=== PATIENT | female | born 1945 | race Caucasian/White ===

== ENCOUNTER → 2016-06-20 | Outpatient (CLI) | payer MEDICARE, BC ==
[2015-02-21 11:55] VITALS: BP 138/75
[~2016-06-20] MED LIST: AMLO1TAB93 PO; AMLO1TAB95 PO; ASPI81TA2 PO; CYAN250T PO; ESTR0.62 PO; GLUC1CAP48 PO; PANT40TA3 PO; PANTOPRAZOLE; POLY17PO5 PO
--- NOTE | 2016-06-20 14:33 | RAD ---
Chest, 2 views, 06/20/2016: History: Cough, bronchitis Comparison is made to a study from 02/21/2015. The heart size and pulmonary vascularity are normal. There are mild linear basilar opacities compatible with scarring. No pulmonary consolidation is seen. There is no evidence of pleural fluid. Moderate spurring is present in the spine. IMPRESSION: 1. Mild bibasilar linear scarring. 2. No acute cardiopulmonary abnormality is detected.
== END | disposition home or self-care (01) ==
LOC: DXRADRC 09:40
PROVIDERS: ATTEND Family Medicine
DX: J40 Bronchitis, not specified as acute or chronic (principal); L90.5 Scar conditions and fibrosis of skin; R91.8 Other nonspecific abnormal finding of lung field
CPT/HCPCS: 71020

== ENCOUNTER 2016-10-22 02:42 | Emergency (ER) | payer MEDICARE, BC ==
[~2016-10-22] VITALS: Ht 167.6 cm; Wt 94.3 kg
[~2016-10-22 02:42] MED LIST changes: +ASPI-630 PO; -ASPI81TA2 PO
[2016-10-22 02:43] VITALS: BP 158/84
--- NOTE | 2016-10-22 02:53 | ED.ADGEN ---
Past History Past Medical History: GERD, Hypertension, Other Past Surgical History: Cholecystectomy, Hysterectomy, Oophorectomy Smoking: Non-smoker Alcohol Use: None Drug Use: None Adult General Chief Complaint Chief Complaint ".. I was getting some out of the freezer.. and hurt my back.. well it gotten worse today ... when I was doing cleaning.. I seen the chiropractor.. and got an adjustment.. but I still hurting really bad... can't sit.. or lay down.. It hurts all the way down... this Lt leg..." HPI HPI Patient is a 71 year old female who presents with above hx and complaints. Patient has marked pain in lumbar sacral and paraspinal muscles on left. Pain follows a sciatic course through the left gluteal into left foot. Pain has exacerbation with straight leg with on left. Distal sensation and vibratory intact. No history of fever or chills. No history of cancer. No history of immune of immune suppression. Patient normally follows with Dr. Gr as primary. Pt. does have hx of HTN. Patient reports no problems with defecation but unable to urinate well because of pain on positioning on stool lid. Has tried Advil and Tylenol at home for pain. Review of Systems Review of Systems Constitutional: Denies fever or chills [] Eyes: Denies change in visual acuity, redness, or eye pain [] HENT: Denies nasal congestion or sore throat [] Respiratory: Denies cough or shortness of breath [] Cardiovascular: No additional information not addressed in HPI [] GI: Denies abdominal pain, nausea, vomiting, bloody stools or diarrhea [] : Denies dysuria or hematuria [] Musculoskeletal: Complaints of marked back pain or joint pain [] Integument: Denies rash or skin lesions [] Neurologic: Denies headache, focal weakness or sensory changes [] Endocrine: Denies polyuria or polydipsia [] Family History Family History Noncontributory Current Medications Current Medications Current Medications Medications (Trade) Dose Ordered Sig/Bettye Start Time Stop Time Status Last Admin Dose Admin Ketorolac Tromethamine (Toradol) 30 mg 1X ONCE 10/22/16 03:30 10/22/16 03:31 DC 10/22/16 03:30 30 MG Morphine Sulfate (Morphine 10mg Syringe) 10 mg 1X ONCE 10/22/16 03:30 10/22/16 03:31 DC 10/22/16 03:30 10 MG Orphenadrine Citrate (Norflex) 60 mg 1X ONCE 10/22/16 03:30 10/22/16 03:31 DC 10/22/16 03:30 60 MG See nursing for home meds Allergies Allergies Allergies Coded Allergies Type Severity Reaction Last Updated Verified Penicillins Allergy Unknown Unknown 04/15/14 Yes Soap Allergy Unknown 04/15/14 Yes Sulfa (Sulfonamide Antibiotics) Allergy Unknown Unknown 04/15/14 Yes codeine Allergy Unknown Unknown 04/15/14 Yes povidone-iodine Allergy Unknown 01/27/13 Yes Physical Exam Physical Exam Constitutional: Well developed, well nourished, no acute distress, non-toxic appearance. [] HENT: Normocephalic, atraumatic, bilateral external ears normal, oropharynx moist, no oral exudates, nose normal. []Glasses Eyes: PERRLA, EOMI, conjunctiva normal, no discharge. [] Neck: Normal range of motion, no tenderness, supple, no stridor. [] Cardiovascular: Tachycardia rate regular rhythm, no murmur [] Lungs & Thorax: Bilateral breath sounds clear to auscultation [] Abdomen: Bowel sounds normal, soft, no tenderness, no masses, no pulsatile masses. [Obese. Old surgery scar Skin: Warm, dry, no erythema, no rash. [Poor turgor Back: No tenderness, no CVA tenderness. [] Extremities: No tenderness, no cyanosis, no clubbing, ROM intact, no edema. Pt. has guarded gait Neurologic: Alert and oriented X 3, normal motor function, normal sensory function, no focal deficits noted. DTRs are +2 at brachial and +1 knees. Right knee has some arthritic changes. Distal vibratory 128 intact Psychologic: Affect anxious, judgement normal, mood normal. [] Current Patient Data Vital Signs Vital Signs Date Time Temp Pulse Resp B/P (MAP) Pulse Ox O2 Delivery O2 Flow Rate FiO2 10/22/16 02:43 97.7 81 20 95 Room Air EKG EKG [] Radiology/Procedures Radiology/Procedures Interpretation of CT shows[] Course & Med Decision Making Course & Med Decision Making Pertinent Labs and Imaging studies reviewed. (See chart for details) Pt.to follow up with primary care. Ice packs as needed. Flexeril 10 mg up 3 x day for muscle spasms. Vicopofen up 4 x day for marked pain. Must follow up[. [] Final Impression Final Impression 1. Sciatica[] 2. DJD Problems: Dragon Disclaimer Dragon Disclaimer This electronic medical record was generated, in whole or in part, using a voice recognition dictation system. CHARLENE HAMMONDS MD Oct 22, 2016 02:53
[2016-10-22] MEDS ORDERED: ORPHENADRINE CITRATE 60 MG/2 ML VIAL. IM ONE (03:30)
[2016-10-22] MEDS ORDERED: MORPHINE SULFATE 10 MG/ML SYRINGE. SQ ONE (03:30)
[2016-10-22] MEDS ORDERED: KETOROLAC 30 MG/ML VIAL. IV ONE (03:30)
--- NOTE | 2016-10-22 04:12 | RAD ---
INDICATION: lower back pain x 10 days, twisted back while cleaning COMPARISON: None. TECHNIQUE: Axial CT images obtained through the lumbar spine. One or more of the following individualized dose reduction techniques were utilized for this examination: 1. Automated exposure control; 2. Adjustment of the mA and/or kV according to patient size; 3. Use of iterative reconstruction technique. FINDINGS: Calcific atherosclerosis at partially visualized abdomen. No definite acute fracture or dislocation of lumbar spine. Prominence of left renal pelvis versus peripelvic cyst. There is some lucent lesions within the spine with one of the larger 1's at L2 measuring up to approximately 2 cm. Degenerative changes of the lumbar spine are identified with facet hypertrophy as well as degenerative disc disease with some osteophyte formation as well as disc bulges. This likely contributes to some mild neural foraminal stenosis bilaterally at multiple levels but no high-grade neural foraminal stenosis is seen. No definite high-grade central canal stenosis but there is some mild central canal narrowing suspected including at L4-5. IMPRESSION: No definite acute fracture or dislocation. Degenerative changes lumbar spine with facet hypertrophy as well as degenerative disc disease. Multiple lucent lesions are suspected within the lumbar spine with the most likely cause being vertebral body hemangioma unless the patient has any risk factors or history of malignancy. Partial visualization of abdomen demonstrates either prominence in the left renal collecting system or peripelvic cysts. Electronically signed by: Gary Sage MD (10/22/2016 4:08 AM) [facility]
[2016-10-22] MEDS ORDERED: CYCL-331 PO (04:28)
[2016-10-22] MEDS ORDERED: HYDR-79 PO (04:28)
== END 2016-10-22 04:51 | disposition home or self-care (01) ==
LOC: ER 02:42
DX: M54.42 Lumbago with sciatica, left side (principal); M19.90 Unspecified osteoarthritis, unspecified site; K21.9 Gastro-esophageal reflux disease without esophagitis; I10 Essential (primary) hypertension; Z91.041 Radiographic dye allergy status; Z88.5 Allergy status to narcotic agent; Z88.0 Allergy status to penicillin; Z88.2 Allergy status to sulfonamides; Z91.048 Other nonmedicinal substance allergy status
CPT/HCPCS: 72131; 96372; 96374; 99284; J1885; J2270; J2360

== ENCOUNTER → 2017-07-26 | Outpatient (CLI) | payer MEDICARE, BC ==
[~2017-07-26] MED LIST changes: +CYCL-331 PO; +HYDR-79 PO
--- NOTE | 2017-07-26 14:55 | RAD ---
Gastric Emptying Study 07/26/2017 COMPARISON STUDY: None Indication: INTRACTABLE HEARTBURN FOR 9 MONTHS, PT ATE EGG,TOAST AND WATER. Procedure: Anterior and posterior projection static images are obtained over the stomach following oral administration of 1.3 mCi of 99 M technetium sulfur colloid in a solid meal (egg and toast). Time points include an immediate baseline, and 1, 2, 3, and 4 hours post ingestion. Findings: There is progressive emptying of the stomach on sequential images. Percentage retention at one hour is 88.3% (normal 34.8-91%). Two hours 46.3% (normal 2.7-60%). Three hours 11.8% (normal 0.5-28%). Four hours 1% (normal 0-10%). Impression: Normal 4 hour protocol gastric emptying study. Electronically signed by: Stanley Rodriguez MD (07/26/2017 2:52 PM) [id number]
== END | disposition home or self-care (01) ==
LOC: NM 08:30
PROVIDERS: ATTEND Internal Medicine Gastroenterology
DX: R12 Heartburn (principal); I10 Essential (primary) hypertension; K21.9 Gastro-esophageal reflux disease without esophagitis
CPT/HCPCS: 78264; A9541

== ENCOUNTER → 2017-09-20 | Outpatient (CLI) | payer MEDICARE, BC ==
--- NOTE | 2017-09-20 15:16 | RAD ---
Right lower extremity venous ultrasound, 09/20/2017 : History: Right calf pain Duplex evaluation including grayscale, color flow and spectral Doppler analysis was performed. The femoral and popliteal veins show no filling defects to suggest DVT. The visualized deep veins in the right calf are unremarkable. IMPRESSION: There is no sonographic evidence of deep vein thrombosis in the right lower extremity Electronically signed by: Edin Hook MD (09/20/2017 3:12 PM) [facility]
== END | disposition home or self-care (01) ==
LOC: US 14:11
PROVIDERS: ATTEND Neuromusculoskeletal Medicine & OMM
DX: M79.661 Pain in right lower leg (principal); I10 Essential (primary) hypertension; K21.9 Gastro-esophageal reflux disease without esophagitis
CPT/HCPCS: 93971

== ENCOUNTER 2017-10-14 14:50 | Emergency (ER) | payer MEDICARE, BC ==
[~2017-10-14] VITALS: Ht 172.7 cm; Wt 90.7 kg
--- NOTE | 2017-10-14 15:12 | PHYS DOC ---
Past History Past Medical History: GERD, Hypertension, Other Past Surgical History: Cholecystectomy, Hysterectomy, Oophorectomy Smoking: Non-smoker Alcohol Use: None Drug Use: None Adult General Chief Complaint Chief Complaint: back pain HPI HPI 72-year-old female presents with right shoulder blade pain that radiates around to her right flank. Patient states that she started to notice this cramping sensation 3 days ago. It is intermittent. It seems to be getting worse. She had difficulty sleeping last night due to the pain. Patient denies diaphoresis but admits to some shortness of breath. She denies nausea or vomiting. Nothing seems to make the pain better or worse. It has short periods of being sharp and intense, then goes back to a dull ache. She never had anything like this before. She denies fever or chills. The skin over the right short leg is tender the touch. She denies trauma or overuse. Review of Systems Review of Systems Constitutional: Denies fever or chills [] Eyes: Denies change in visual acuity, redness, or eye pain [] HENT: Denies nasal congestion or sore throat [] Respiratory: Denies cough or shortness of breath [] Cardiovascular: No additional information not addressed in HPI [] GI: Denies abdominal pain, nausea, vomiting, bloody stools or diarrhea [] : Denies dysuria or hematuria [] Musculoskeletal: Back pain [] Integument: Denies rash or skin lesions [] Neurologic: Denies headache, focal weakness or sensory changes [] Endocrine: Denies polyuria or polydipsia [] All other systems were reviewed and found to be within normal limits, except as documented in this note. Allergies Allergies Allergies Coded Allergies Type Severity Reaction Last Updated Verified Penicillins Allergy Unknown Unknown 04/15/14 Yes Soap Allergy Unknown 04/15/14 Yes Sulfa (Sulfonamide Antibiotics) Allergy Unknown Unknown 04/15/14 Yes codeine Allergy Unknown Unknown 04/15/14 Yes povidone-iodine Allergy Unknown 01/27/13 Yes Physical Exam Physical Exam Constitutional: Well developed, well nourished, no acute distress, non-toxic appearance. [] HENT: Normocephalic, atraumatic, bilateral external ears normal, oropharynx moist, no oral exudates, nose normal. [] Eyes: PERRLA, EOMI, conjunctiva normal, no discharge. [] Neck: Normal range of motion, no tenderness, supple, no stridor. [] Cardiovascular:Heart rate regular rhythm, no murmur [] Lungs & Thorax: Bilateral breath sounds clear to auscultation [] Abdomen: Bowel sounds normal, soft, no tenderness, no masses, no pulsatile masses. [] Skin: Warm, dry, no erythema, no rash. [] Back: Tenderness over the right scapula with even light palpation. No obvious rash.[] Extremities: No tenderness, no cyanosis, no clubbing, ROM intact, no edema. [] Neurologic: Alert and oriented X 3, normal motor function, normal sensory function, no focal deficits noted. [] Psychologic: Affect normal, judgement normal, mood normal. [] EKG EKG Sinus rhythm, rate 70, normal axis, no ST elevations or depressions.[] Radiology/Procedures Radiology/Procedures [] Impressions: EXAM: Chest, single view. HISTORY: Chest pain. COMPARISON: 06/20/2016 FINDINGS: A frontal view of the chest is obtained. There is suspected linear bilateral lower lobe atelectasis. There is no pleural effusion or pneumothorax. The heart is normal in size. IMPRESSION: No acute pulmonary finding. Electronically signed by: Ashely Gaytan MD (10/14/2017 3:20 PM) [facility] DICTATED AND SIGNED BY: ASHELY GAYTAN MD DATE: 10/14/17 1520 CC: STACIA CARVER DO; DALTON PARKINSON MD ~ Course & Med Decision Making Course & Med Decision Making Pertinent Labs and Imaging studies reviewed. (See chart for details) The patient's labs are unremarkable. Her chest x-ray is unremarkable. A reexamination of the patient's skin shows that she is very tender along the distribution of T3 or T4. At the admission of her breast I discovered 7 small red dots. When palpated, the patient states these are very painful. They do not appear to be overt vesicles, but do appear as though they could become vesicular. I will treat the patient with Valtrex 1 g 3 times a day for 7 days, Neurontin 100 mg 3 times a day, and [place] 06/21/24 for breakthrough pain. [] Dragon Disclaimer Dragon Disclaimer This electronic medical record was generated, in whole or in part, using a voice recognition dictation system. Departure Departure: Referrals: DALTON PARKINSON MD (PCP) Scripts Valacyclovir Hcl (VALTREX) 1,000 Mg Tablet 1 TAB PO TID, #21 TAB Prov: STACIA CARVER DO 10/14/17 Gabapentin (NEURONTIN) 100 Mg Capsule 100 MG PO TID PRN for PAIN, #60 CAP Prov: STACIA CARVER DO 10/14/17 Hydrocodone Bit/Acetaminophen (NORCO 5-325 TABLET) 1 Each Tablet 1 TAB PO PRN Q6HRS PRN for PAIN, #14 TAB 0 Refills Prov: STACIA CARVER DO 10/14/17 STACIA CARVER DO Oct 14, 2017 15:12
--- NOTE | 2017-10-14 15:23 | RAD ---
EXAM: Chest, single view. HISTORY: Chest pain. COMPARISON: 06/20/2016 FINDINGS: A frontal view of the chest is obtained. There is suspected linear bilateral lower lobe atelectasis. There is no pleural effusion or pneumothorax. The heart is normal in size. IMPRESSION: No acute pulmonary finding. Electronically signed by: Ashely Gaytan MD (10/14/2017 3:20 PM) [facility]
[2017-10-14] MEDS ORDERED: ASPIRIN 81 MG TAB.CHEW PO ONE (15:30)
--- NOTE | 2017-10-14 15:53 | EKG ---
[address] [address] Test Date: 2017-10-14 Test Time: 15:13:57 Pat Name: AUGUST COLE Department: Room: Gender: F [employer]: : 1945 Requested By: STACIA CARVER Order Number: [id number] Reading MD: Dez Monte MD Measurements Intervals [place] Rate: 70 P: 43 NV: 196 QRS: -11 QRSD: 60 T: 22 QT: 364 QTc: 396 Interpretive Statements SINUS RHYTHM Electronically Signed On 10-15-2017 10:52:48 CDT by Dez Monte MD
[2017-10-14 16:00] LABS: BASO % 1 % (0-3); EOS # 0.2 x10^3/uL (0.0-0.7); EOS % 3 % (0-3); HEMATOCRIT 42.6 % (36.0-47.0); HEMOGLOBIN 14.6 g/dL (12.0-15.5); LYMPH # 2.1 x10^3/uL (1.0-4.8); LYMPH % 33 % (24-48); MEAN CORPUSCULAR HEMOGLOBIN 31 pg (25-35); MEAN CORPUSCULAR HGB CONC 34 g/dL (31-37); MEAN CORPUSCULAR VOLUME 92 fL (79-100); MONO # 0.9 x10^3/uL (0.0-1.1); MONO % 14 % (0-9); NEUT # 3.2 x10^3uL (1.8-7.7); NEUT % 50 % (31-73); PLATELET COUNT 209 x10^3/uL (140-400); RED BLOOD COUNT 4.65 x10^6/uL (3.50-5.40); RED CELL DISTRIBUTION WIDTH 13.8 % (11.5-14.5); WHITE BLOOD COUNT 6.4 x10^3/uL (4.0-11.0)
[2017-10-14 16:08] LABS: ALBUMIN 3.7 g/dL (3.4-5.0); CALCIUM 9.5 mg/dL (8.5-10.1); CREATININE 1.1 mg/dL (0.6-1.0); GFR 49.1; POTASSIUM 3.9 mmol/L (3.5-5.1); TOTAL BILIRUBIN 0.4 mg/dL (0.2-1.0); TOTAL PROTEIN 7.3 g/dL (6.4-8.2)
[2017-10-14] MEDS ORDERED: valACYclovir 500 MG TABLET. PO STA (16:42)
[2017-10-14] MEDS ORDERED: HYDROcodone/APAP 5/325MG 1 TAB TABLET PO ONE (16:45)
[2017-10-14 16:48] LABS: BACTERIA,URINE 0 /HPF (0-FEW); BILIRUBIN,URINE NEG (NEG); CLARITY,URINE CLEAR; COLOR,URINE YELLOW; GLUCOSE,URINE NEG (NEG); NITRITE,URINE NEG (NEG); RBC,URINE 0 /HPF (0-2); SQUAMOUS EPITHELIAL CELL,UR OCC /LPF; UROBILINOGEN,URINE 0.2 mg/dL (0.2 mg/dL); WBC,URINE RARE /HPF (0-4)
[2017-10-14] MEDS ORDERED: VALA10005 PO (17:02)
[2017-10-14] MEDS ORDERED: GABA-585 PO (17:02)
[2017-10-14] MEDS ORDERED: HYDR-971 PO (17:02)
[2017-10-14 17:08] VITALS: BP 140/71
== END 2017-10-14 17:09 | disposition home or self-care (01) ==
LOC: ER 14:50
DX: M54.6 Pain in thoracic spine (principal); M25.511 Pain in right shoulder; L53.8 Other specified erythematous conditions; K21.9 Gastro-esophageal reflux disease without esophagitis; I10 Essential (primary) hypertension; Z88.0 Allergy status to penicillin; Z88.2 Allergy status to sulfonamides; Z88.5 Allergy status to narcotic agent; Z91.041 Radiographic dye allergy status; Z91.048 Other nonmedicinal substance allergy status
CPT/HCPCS: 36415; 71045; 80053; 81001; 84484; 85025; 93005; 99285-25

== ENCOUNTER → 2018-02-25 | Outpatient (CLI) | payer MEDICARE, BC ==
[~2018-02-25] MED LIST changes: +GABA-585 PO; +HYDR-1179 PO; +HYDR-3165 PO; -HYDR-79 PO; +VALA10005 PO
--- NOTE | 2018-02-25 10:51 | RAD ---
EXAM: Head CT without contrast. HISTORY: Fall. TECHNIQUE: Computed tomographic images of the head were obtained without contrast. *One or more of the following individualized dose reduction techniques were utilized for this examination: 1. Automated exposure control. 2. Adjustment of the mA and/or kV according to patient size. 3. Use of iterative reconstruction technique. COMPARISON: None. FINDINGS: There is partial visualization of a small inferior right frontal scalp and right periorbital soft tissue hematoma. There is no intracranial hemorrhage. There is no mass effect or midline shift. There is no hydrocephalus. There are areas of decreased attenuation within the cerebral white matter, nonspecific and likely related to chronic small vessel disease. The visualized portions of the orbits, paranasal sinuses and mastoid air cells are unremarkable. No suspicious calvarial lesion is seen. IMPRESSION: 1. Small inferior right frontal scalp and right periorbital soft tissue hematoma. 2. No acute intracranial finding. 3. Subtle areas of hypodensity within the cerebral white matter, likely due to chronic small vessel disease. Electronically signed by: Ashely Gaytan MD (02/25/2018 10:47 AM) [id number]
== END | disposition home or self-care (01) ==
LOC: PMG 10:18
PROVIDERS: ATTEND Registered Nurse
DX: S00.03XA Contusion of scalp, initial encounter (principal); R90.82 White matter disease, unspecified; X58.XXXA Exposure to other specified factors, initial encounter; Y93.89 Activity, other specified; Y92.89 Other specified places as the place of occurrence of the external cause; Y99.8 Other external cause status
CPT/HCPCS: 70450

== ENCOUNTER → 2018-05-20 | Outpatient (CLI) | payer MEDICARE, BC ==
--- NOTE | 2018-05-20 11:42 | RAD ---
Lumbar spine, 3 views, 05/20/2018: HISTORY: Fall, back pain The lumbar vertebral heights are well-maintained. There is an accessory rib or old nonunited fracture along the left transverse process at L1. No recent fracture or subluxation is evident. There are moderate scattered marginal spurs. There is moderate degenerative change involving facet joints bilaterally in the lower lumbar spine. Aortic calcific plaquing is present. IMPRESSION: 1. Moderate multilevel degenerative change. 2. No acute bony abnormality is detected. Electronically signed by: Edin Hook MD (05/20/2018 11:39 AM) [facility]
== END | disposition home or self-care (01) ==
LOC: PMG 11:03
PROVIDERS: ATTEND Registered Nurse
DX: M47.896 Other spondylosis, lumbar region (principal); I70.0 Atherosclerosis of aorta
CPT/HCPCS: 72100

== ENCOUNTER 2018-10-31 12:48 | Inpatient (IN) | payer MEDICARE, BC ==
[~2018-10-31] VITALS: Ht 167.6 cm; Wt 88.7 kg
--- NOTE | 2018-10-31 13:28 | PHYS DOC ---
Past History Past Medical History: GERD, Hypertension Past Surgical History: Hysterectomy Smoking: Non-smoker Alcohol Use: None Drug Use: None The HEART Score for CP Pts HEART Score for Chest Pain: HEART Score for Chest Pain Response (Comments) Value History Moderately Suspicious 1 ECG Nonspecific Repolarizatio 1 Age > 65 2 Risk Factors 1 or 2 Risk Factors 1 Troponin < Normal Limit 0 Total 5 Risk Factors: Risk Factors: DM, Current or recent (<one month) smoker, HTN, HLP, family history of CAD, obesity. Risk Scores: Score 0 - 3: 2.5% MACE over next 6 weeks - Discharge Home Score 4 - 6: 20.3% MACE over next 6 weeks - Admit for Clinical Observation Score 7 - 10: 72.7% MACE over next 6 weeks - Early Invasive Strategies Adult General Chief Complaint Chief Complaint: MULTIPLE COMPLAINTS HPI HPI 73-year-old female presents to the emergency department complaints of chest pain. Patient describes intermittent chest pain, coming and going radiation to her back and left arm. She describes nausea, diaphoresis associated with the pain at times. She has well described shortness of breath. Patient has history of hypertension, hyperlipidemia. Patient denies any aspirin, chronic anticoagulation, no history of coronary artery disease. She states she's had chest pain before however this feels different. Review of Systems Review of Systems Constitutional: Denies fever or chills [] Eyes: Denies change in visual acuity, redness, or eye pain [] Respiratory: Intermittent shortness of breath, with activity Cardiovascular: No additional information not addressed in HPI [] GI: Denies abdominal pain, vomiting, bloody stools or diarrhea []positive nausea : Denies dysuria or hematuria [] Integument: Denies rash or skin lesions [] Neurologic: Occasional headache All other systems were reviewed and found to be within normal limits, except as documented in this note. Allergies Allergies Allergies Coded Allergies Type Severity Reaction Last Updated Verified Penicillins Allergy Unknown Unknown 04/15/14 Yes Soap Allergy Unknown 04/15/14 Yes Sulfa (Sulfonamide Antibiotics) Allergy Unknown Unknown 04/15/14 Yes codeine Allergy Unknown Unknown 04/15/14 Yes povidone-iodine Allergy Unknown 01/27/13 Yes Physical Exam Physical Exam Constitutional: Well developed, well nourished, no acute distress, non-toxic appearance. [] HENT: Normocephalic, atraumatic, bilateral external ears normal, oropharynx moist, no oral exudates, nose normal. [] Eyes: PERRLA, EOMI, conjunctiva normal, no discharge. [] Cardiovascular:Heart rate regular rhythm, no murmur [] Lungs & Thorax: Bilateral breath sounds clear to auscultation [] Abdomen: Bowel sounds normal, soft, no tenderness, no masses, no pulsatile masses. [] Skin: Warm, dry, no erythema, no rash. [] Extremities: No tenderness, no cyanosis, no clubbing, no edema. [] Neurologic: Alert and oriented X 3, no focal deficits noted. [] Psychologic: Affect normal, judgement normal, mood normal. [] Current Patient Data Vital Signs Temperature (Fahrenheit): * 98.4 degrees F (97.6-99.5) Patient Temperature * 98.4 degrees F (97.5-99.5) Temperature Source * Oral Blood Pressure Systolic * 143 mm Hg (100-140) H Blood Pressure Diastolic * 73 mm Hg (60-100) Blood Pressure Mean * 96 mm Hg Blood Pressure Location * Right Arm Blood Pressure Source * Automatic Cuff Pulse Rate * 82 beats per minute (60-90) Pulse Assessment Method * Monitor Respiratory Rate * 18 breaths per minute (12-24) Lab Results Laboratory Tests Test 10/31/18 13:10 White Blood Count 10.0 x10^3/uL Red Blood Count 5.10 x10^6/uL Hemoglobin 16.2 g/dL Hematocrit 47.7 % Mean Corpuscular Volume 93 fL Mean Corpuscular Hemoglobin 32 pg Mean Corpuscular Hemoglobin Concent 34 g/dL Red Cell Distribution Width 13.8 % Platelet Count 278 x10^3/uL Neutrophils (%) (Auto) 58 % Lymphocytes (%) (Auto) 29 % Monocytes (%) (Auto) 11 % Eosinophils (%) (Auto) 2 % Basophils (%) (Auto) 1 % Neutrophils # (Auto) 5.8 x10^3uL Lymphocytes # (Auto) 2.9 x10^3/uL Monocytes # (Auto) 1.1 x10^3/uL Eosinophils # (Auto) 0.2 x10^3/uL Basophils # (Auto) 0.1 x10^3/uL D-Dimer (Rosey) 0.31 mg/L Sodium Level 139 mmol/L Potassium Level 4.1 mmol/L Chloride Level 103 mmol/L Carbon Dioxide Level 24 mmol/L Anion Gap 12 Blood Urea Nitrogen 26 mg/dL Creatinine 1.3 mg/dL Estimated GFR (Cockcroft-Gault) 40.4 BUN/Creatinine Ratio 20 Glucose Level 140 mg/dL Calcium Level 9.5 mg/dL Total Bilirubin 0.5 mg/dL Aspartate Amino Transf (AST/SGOT) 18 U/L Alanine Aminotransferase (ALT/SGPT) 22 U/L Alkaline Phosphatase 75 U/L Troponin I Quantitative < 0.017 ng/mL Total Protein 7.7 g/dL Albumin 4.0 g/dL Albumin/Globulin Ratio 1.1 Current Medications Medications (Trade) Dose Ordered Sig/Bettye Route PRN Reason Start Time Stop Time Status Last Admin Dose Admin Aspirin (Children'S Aspirin) 324 mg 1X ONCE PO 10/31/18 13:45 10/31/18 13:46 DC 10/31/18 13:33 Nitroglycerin (Nitro-Bid Oint) 1 inch 1X ONCE TP 10/31/18 13:45 10/31/18 13:46 DC EKG EKG EKG reviewed 1316, normal sinus rhythm, no evidence of acute ST elevation appreciated normal axis[] Radiology/Procedures Radiology/[place] [address] IMAGING REPORT Signed PATIENT: AUGUST COLE ACCOUNT: [id number] : 1945 LOCATION: ER AGE: 73 SEX: F EXAM STATUS: REG ER ORD. PHYSICIAN: ZACHARIAH WORTHINGTON MD REASON: chest pain PROCEDURE: CHEST AP ONLY CHEST AP ONLY History: Chest pain Comparison: October 14, 2017 Findings: Single view of the chest is submitted. There is no new lobar infiltrate, pleural fluid, pneumothorax. Heart size is stable. Superior right paratracheal opacity is probably related to the vasculature, similar to older 2018 exam. Impression: 1. There is no radiographic evidence of acute cardiopulmonary disease. Electronically signed by: Lissa Adamson MD (10/31/2018 1:36 PM) [id number] DICTATED AND SIGNED BY: LISSA ADAMSON MD DATE: 10/31/18 1338 CC: ZACHARIAH WORTHINGTON MD; DALTON PARKINSON MD ~ [] Course & Med Decision Making Course & Med Decision Making Pertinent Labs and Imaging studies reviewed. (See chart for details) [] 73-year-old female presents to the emergency department complaints of chest pain. Patient describes intermittent chest pain, coming and going radiation to her back and left arm. She describes nausea, diaphoresis associated with the pain at times. She has well described shortness of breath. Patient has history of hypertension, hyperlipidemia. Patient denies any aspirin, chronic anticoagulation, no history of coronary artery disease. She states she's had chest pain before however this feels different. Dragon Disclaimer Dragon Disclaimer This electronic medical record was generated, in whole or in part, using a voice recognition dictation system. Departure Departure: Impression: Primary Impression: Chest pain Additional Impressions: Shortness of breath Hypertension Disposition: ADMITTED INPATIENT Admitting Physician: Omar Hammond Condition: STABLE Referrals: DALTON PARKINSON MD (PCP) Problem Qualifiers Primary Impression: Chest pain Chest pain type: unspecified Qualified Codes: R07.9 - Chest pain, unspe cified Additional Impressions: Hypertension Hypertension type: essential hypertension Qualified Codes: I10 - Essential (primary) hypertension ZACHARIAH WORTHINGTON MD Oct 31, 2018 13:28
[2018-10-31 13:31] LABS: BASO # 0.1 x10^3/uL (0.0-0.2); BASO % 1 % (0-3); EOS # 0.2 x10^3/uL (0.0-0.7); EOS % 2 % (0-3); HEMATOCRIT 47.7 % (36.0-47.0); HEMOGLOBIN 16.2 g/dL (12.0-15.5); LYMPH # 2.9 x10^3/uL (1.0-4.8); LYMPH % 29 % (24-48); MEAN CORPUSCULAR HEMOGLOBIN 32 pg (25-35); MEAN CORPUSCULAR HGB CONC 34 g/dL (31-37); MEAN CORPUSCULAR VOLUME 93 fL (79-100); MONO # 1.1 x10^3/uL (0.0-1.1); MONO % 11 % (0-9); NEUT # 5.8 x10^3uL (1.8-7.7); NEUT % 58 % (31-73); PLATELET COUNT 278 x10^3/uL (140-400); RED CELL DISTRIBUTION WIDTH 13.8 % (11.5-14.5)
--- NOTE | 2018-10-31 13:31 | EKG ---
[address] [address] Test Date: 2018-10-31 Test Time: 13:08:17 Pat Name: AUGUST COLE Department: Room: Gender: F [employer]: : 1945 Requested By: ZACHARIAH WORTHINGTON Order Number: [id number] Reading MD: Measurements Intervals [place] Rate: 78 P: 16 AK: 170 QRS: -1 QRSD: 70 T: 56 QT: 348 QTc: 400 Interpretive Statements SINUS RHYTHM LEFTWARD AXIS R-S TRANSITION ZONE IN V LEADS DISPLACED TO THE RIGHT NO SPECIFIC ECG ABNORMALITIES RI6.01 No previous ECG available for comparison
--- NOTE | 2018-10-31 13:39 | RAD ---
CHEST AP ONLY History: Chest pain Comparison: October 14, 2017 Findings: Single view of the chest is submitted. There is no new lobar infiltrate, pleural fluid, pneumothorax. Heart size is stable. Superior right paratracheal opacity is probably related to the vasculature, similar to older 2018 exam. Impression: 1. There is no radiographic evidence of acute cardiopulmonary disease. Electronically signed by: Trino Bowden MD (10/31/2018 1:36 PM) [id number]
[2018-10-31] MEDS ORDERED: NITROGLYCERIN OINT 1 GM PACKET. TP ONE (13:45)
[2018-10-31] MEDS ORDERED: ASPIRIN 81 MG TAB.CHEW PO ONE (13:45)
[2018-10-31 13:50] LABS: ALBUMIN/GLOBULIN RATIO 1.1 (1.0-1.7); CALCIUM 9.5 mg/dL (8.5-10.1); CREATININE 1.3 mg/dL (0.6-1.0); GFR 40.4; POTASSIUM 4.1 mmol/L (3.5-5.1); TOTAL BILIRUBIN 0.5 mg/dL (0.2-1.0); TOTAL PROTEIN 7.7 g/dL (6.4-8.2)
[2018-10-31] MEDS ORDERED: IV NORMAL SALINE 1,000ML 1,000 ML IV ONE (14:15)
[2018-10-31] MEDS ORDERED: NITROGLYCERIN SUBLINGUAL 0.4 MG BOTTLE OF 25. SL PRN (14:30)
[2018-10-31] MEDS ORDERED: ONDANSETRON PF 4 MG/2 ML VIAL. IV PRN (14:30)
[2018-10-31 15:12] LABS: BILIRUBIN,URINE NEG (NEG); CLARITY,URINE CLEAR; COLOR,URINE STRAW; GLUCOSE,URINE NEG (NEG)
[2018-10-31 15:13] LABS: BACTERIA,URINE 0 /HPF (0-FEW); NITRITE,URINE NEG (NEG); RBC,URINE 0 /HPF (0-2); SQUAMOUS EPITHELIAL CELL,UR OCC /LPF; UROBILINOGEN,URINE 0.2 mg/dL (0.2 mg/dL); WBC,URINE OCC /HPF (0-4)
[2018-10-31 17:14] VITALS: BP 135/82
--- NOTE | 2018-10-31 18:11 | HP ---
ADMIT DATE: 10/31/2018 HISTORY OF PRESENT ILLNESS: The patient is a 73-year-old female patient who came to the Emergency Room complaining of chest discomfort. She described it as intermittent chest pain, not specifically related to exertion with some radiation to her back and left arm. She describes nausea and diaphoresis related to the pain at times. It was difficult to know whether this diaphoresis starts first and then the chest pain comes or vice versa. She also complained of shortness of breath, but denied any orthopnea or paroxysmal nocturnal dyspnea. She was evaluated in the Emergency Room and has had her EKG showed she was in sinus rhythm with no evidence of acute ST elevation or depression. Her chest x-ray showed that there is no radiographic evidence of acute cardiopulmonary disease. Her first set of cardiac enzyme was less than 0.017. The patient was admitted to rule out myocardial infarction. PAST MEDICAL HISTORY: Significant for hypertension, hyperlipidemia and gastroesophageal reflux disease. PAST SURGICAL HISTORY: She has a list of surgeries including bilateral salpingectomy and left oophorectomy, total hysterectomy, cholecystectomy, rectocele, enterocele repair. He has apparently laparoscopy and adhesiolysis for small-bowel obstruction, anterior colporrhaphy, sling and colpopexy. She has another laparotomy for adhesiolysis, hernia repair, arthroscopy of her right knee and bilateral cataract extraction. FAMILY HISTORY: Her sister at the age of 17 because of encephalitis, brother of myocardial infarction and diabetes at age of 69. Her father at age of 52 because of lung cancer. Mother of Alzheimer at age of 81. SOCIAL HISTORY: She is , has 2 sons. She never smoked. Drinks wine occasionally. 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 REVIEW OF SYSTEMS: The patient denied any blurring of vision. She has bilateral cataract extraction, but denied any glaucoma or macular degeneration. Denied any earache, tinnitus or sensorineural deafness. Denied any nosebleeds, stuffy nose or postnasal drip. Denied any sore throat, sore tongue, toothache, hoarseness of voice or difficulty swallowing. Denied any nausea, vomiting, diarrhea or constipation. Denied any hematemesis, melena or hematochezia. Denied any dysuria, frequency or hematuria. Did complain of chest pain and diaphoresis, but denied any dizziness or lightheadedness. PHYSICAL EXAMINATION: GENERAL: On arrival to the Emergency Room, she looked well and was clearly in no apparent respiratory distress, slightly pale, but no jaundice, cyanosis or thyromegaly. No jugular venous distention. No limb edema. VITAL SIGNS: Her heart rate was 82, blood pressure was 118/63, temperature was 98.4, respiratory rate was 18 and oxygen saturation was 96%. HEAD, EYES, EARS, NOSE AND THROAT: Showed normocephalic, atraumatic. NECK: Supple. HEART: Showed normal first and second heart sounds. No gallop or murmur. CHEST: Clear to auscultation. No crepitation or rhonchi. ABDOMEN: Distended, soft, nontender. NEUROLOGIC: She was awake, alert, responding appropriately. All cranial nerves intact. EXTREMITIES: She moves extremities without difficulty. She ambulates without assistance or assistive devices. LABORATORY DATA: Her EKG showed that she was in sinus rhythm with AK interval of 170 milliseconds, QRS duration of 70 milliseconds, corrected QT interval of 400 milliseconds. Her chest x-ray showed no acute cardiopulmonary abnormality. Her white cell count was 10,000, hemoglobin 16, hematocrit 48, MCV 93, and platelet count 278,000. Serum sodium was 139, potassium 4.1, chloride 103, bicarbonate 24, anion gap of 12, BUN 26, creatinine 1.3, estimated GFR was 40 mL per minute. Her glucose 140, calcium was 9.5. Total bilirubin, AST, ALT, alkaline phosphatase were normal. Total protein was 7.7, albumin was 4. Her first troponin was less than 0.017. Urinalysis was essentially unremarkable. His D-dimer was 0.31. PLAN: The plan is to do two sets of cardiac enzymes, check her lipid profile and consult the Cardiology team tomorrow. MEI GALDAMEZ MD DR: YESIKA/pop JOB#: [id number] / [id number]
[2018-10-31] MEDS ORDERED: ESTR30CR TP (18:23)
[2018-10-31] MEDS ORDERED: ACETAMINOPHEN 325 MG TABLET PO PRN (19:30)
[2018-10-31 20:04] VITALS: BP 109/74
[2018-10-31 23:58] VITALS: BP 110/72
[2018-11-01 05:57] VITALS: BP 114/68
[2018-11-01 06:56] LABS: BASO % 1 % (0-3); EOS # 0.2 x10^3/uL (0.0-0.7); EOS % 5 % (0-3); HEMATOCRIT 43.8 % (36.0-47.0); HEMOGLOBIN 14.8 g/dL (12.0-15.5); LYMPH # 1.9 x10^3/uL (1.0-4.8); LYMPH % 36 % (24-48); MEAN CORPUSCULAR HEMOGLOBIN 32 pg (25-35); MEAN CORPUSCULAR HGB CONC 34 g/dL (31-37); MEAN CORPUSCULAR VOLUME 94 fL (79-100); MONO # 0.8 x10^3/uL (0.0-1.1); MONO % 15 % (0-9); NEUT # 2.4 x10^3uL (1.8-7.7); NEUT % 44 % (31-73); PLATELET COUNT 215 x10^3/uL (140-400); RED BLOOD COUNT 4.66 x10^6/uL (3.50-5.40); RED CELL DISTRIBUTION WIDTH 13.9 % (11.5-14.5); WHITE BLOOD COUNT 5.4 x10^3/uL (4.0-11.0)
[2018-11-01 07:11] LABS: ALBUMIN 3.6 g/dL (3.4-5.0); ALBUMIN/GLOBULIN RATIO 1.1 (1.0-1.7); CALCIUM 8.7 mg/dL (8.5-10.1); GFR 54.7; POTASSIUM 4.2 mmol/L (3.5-5.1); TOTAL BILIRUBIN 0.6 mg/dL (0.2-1.0); TOTAL PROTEIN 6.9 g/dL (6.4-8.2)
[2018-11-01] MEDS ORDERED: PANTOPRAZOLE 40 MG TABLET. PO SCH (09:00)
[2018-11-01] MEDS ORDERED: amLODIPine BESYLATE 5 MG TABLET PO SCH (09:00)
[2018-11-01] MEDS ORDERED: LOSARTAN 50 MG TABLET. PO SCH (09:00)
[2018-11-01] MEDS ORDERED: POLYETHYLENE GLYCOL 3350 17 GM PACKET. PO SCH (09:00)
[2018-11-01] MEDS ORDERED: ESTROGENS, CONJ VAGINAL CREAM 30GM TUBE. VG SCH ×2 (09:00→20:00)
[2018-11-01 10:37] VITALS: BP 124/81
--- NOTE | 2018-11-01 15:13 | PDOC2 ---
CONSULT Date of Admission DATE: 11/01/18 TIME: 15:06 Reason for Consult: Chest pain Referring Physician: Dr. Hammond Chief Complaint Chest pain Source: Chart review, Patient Problem List Problems Medical Problems: (1) Chest pain Status: Acute (2) Hypertension Status: Chronic (3) Shortness of breath Status: Acute History of Present Illness 73-year-old female presented complaining of intermittent episodes of retrosternal chest pain that she described as sharp at times and pressure-like sensation at times associated with nausea and diaphoresis. She also complained of mild associated dyspnea but denied any orthopnea/PND, palpitations or syncope. She denied any previous cardiac history but stated that she had stress test [address] Knox's office. Past Medical History Hypertension Hyperlipidemia Gastroesophageal reflux disease Past Surgical History Hysterectomy Cholecystectomy Hernia repair Cataract extraction Family History Coronary artery disease Diabetes mellitus Social History Patient admitted to occasional alcohol intake but denied any smoking or drug abuse. Current Medications Current Medications Aspirin (Children'S Aspirin) 324 mg 1X ONCE PO Last administered on 10/31/18at 13:33; Start 10/31/18 at 13:45; Stop 10/31/18 at 13:46; Status DC Nitroglycerin (Nitro-Bid Oint) 1 inch 1X ONCE TP ; Start 10/31/18 at 13:45; Stop 10/31/18 at 13:46; Status DC Sodium Chloride 1,000 ml @ 75 mls/hr 1X ONCE IV Last administered on 10/31/18at 16:09; Start 10/31/18 at 14:15; Stop 11/01/18 at 03:34; Status DC Ondansetron HCl (Zofran) 4 mg PRN Q4HRS PRN IV NAUSEA/VOMITING; Start 10/31/18 at 14:30; Stop 11/01/18 at 14:29; Status DC Nitroglycerin (Nitrostat) 0.4 mg PRN Q5MIN PRN SL CHEST PAIN; Start 10/31/18 at 14:30; Stop 11/01/18 at 14:29; Status DC Estrogens Conjugated (Premarin) 1 kat 3X/WEEK VG ; Start 11/01/18 at 09:00; St op 11/01/18 at 10:11; Status DC Pantoprazole Sodium (Protonix) 40 mg DAILY PO Last administered on 11/01/18at 09:30; Start 11/01/18 at 09:00 Polyethylene Glycol (miraLAX) 17 gm DAILY PO Last administered on 11/01/18at 09:33; Start 11/01/18 at 09:00 Amlodipine Besylate (Norvasc) 5 mg DAILY PO Last administered on 11/01/18at 09:30; Start 11/01/18 at 09:00 Losartan Potassium (Cozaar) 100 mg DAILY PO Last administered on 11/01/18at 09:33; Start 11/01/18 at 09:00 Acetaminophen (Tylenol) 650 mg PRN Q6HRS PRN PO PAIN / TEMP Last administered on 10/31/18at 20:05; Start 10/31/18 at 19:30 Estrogens Conjugated (Premarin) 1 kat 3X/WEEK VG ; Start 11/01/18 at 20:00 Active Scripts Active Reported Premarin (Estrogens, Conjugated) 30 Gm Cream.appl 30 Gm TP 3X/WEEK Protonix (Pantoprazole Sodium) 40 Mg Tablet.dr 1 Tab PO DAILY Allyson 5-40 Mg Tablet (Amlodipine Bes/Olmesartan Med) 1 Each Tablet 1 Tab PO DAILY Miralax (Polyethylene Glycol 3350) 17 Gm Powd.pack 1 Packet PO DAILY Allergies: Coded Allergies: Penicillins (Verified Allergy, Unknown, Unknown, 04/15/14) Soap (Verified Allergy, Unknown, 04/15/14) Sulfa (Sulfonamide Antibiotics) (Verified Allergy, Unknown, Unknown, 04/15/14) codeine (Verified Allergy, Unknown, Unknown, 04/15/14) povidone-iodine (Verified Allergy, Unknown, 01/27/13) PSYCHOLOGICAL ROS: No: Hallucinations Eyes: No: Loss of vision HEENT: No: Epistaxis Respiratory: No: Hemoptysis Cardiovascular: yes: Chest Pain Gastrointestinal: YES: Nausea Genitourinary: No: Henaturia Neurological: No: Seizures Skin: No: Rash General: Alert, Oriented X3 HEENT: Atraumatic, PERRLA Lungs: Clear to auscultation Heart: Regular rate Abdomen: Soft Extremities: No edema Psych/Mental Status: Mood NL VITALS Vital Signs Date Time Temp Pulse Resp B/P (MAP) Pulse Ox O2 Delivery O2 Flow Rate FiO2 11/01/18 10:37 98.2 67 20 124/81 (95) 96 Room Air Labs Laboratory Tests Test 10/31/18 13:10 10/31/18 14:20 10/31/18 17:30 10/31/18 21:00 White Blood Count 10.0 x10^3/uL (4.0-11.0) Red Blood Count 5.10 x10^6/uL (3.50-5.40) Hemoglobin 16.2 g/dL (12.0-15.5) Hematocrit 47.7 % (36.0-47.0) Mean Corpuscular Volume 93 fL (79-100) Mean Corpuscular Hemoglobin 32 pg (25-35) Mean Corpuscular Hemoglobin Concent 34 g/dL (31-37) Red Cell Distribution Width 13.8 % (11.5-14.5) Platelet Count 278 x10^3/uL (140-400) Neutrophils (%) (Auto) 58 % (31-73) Lymphocytes (%) (Auto) 29 % (24-48) Monocytes (%) (Auto) 11 % (0-9) Eosinophils (%) (Auto) 2 % (0-3) Basophils (%) (Auto) 1 % (0-3) Neutrophils # (Auto) 5.8 x10^3uL (1.8-7.7) Lymphocytes # (Auto) 2.9 x10^3/uL (1.0-4.8) Monocytes # (Auto) 1.1 x10^3/uL (0.0-1.1) Eosinophils # (Auto) 0.2 x10^3/uL (0.0-0.7) Basophils # (Auto) 0.1 x10^3/uL (0.0-0.2) D-Dimer (Rosey) 0.31 mg/L (0.00-0.50) Sodium Level 139 mmol/L (136-145) Potassium Level 4.1 mmol/L (3.5-5.1) Chloride Level 103 mmol/L (98-107) Carbon Dioxide Level 24 mmol/L (21-32) Anion Gap 12 (6-14) Blood Urea Nitrogen 26 mg/dL (7-20) Creatinine 1.3 mg/dL (0.6-1.0) Estimated GFR (Cockcroft-Gault) 40.4 BUN/Creatinine Ratio 20 (6-20) Glucose Level 140 mg/dL (70-99) Calcium Level 9.5 mg/dL (8.5-10.1) Total Bilirubin 0.5 mg/dL (0.2-1.0) Aspartate Amino Transf (AST/SGOT) 18 U/L (15-37) Alanine Aminotransferase (ALT/SGPT) 22 U/L (14-59) Alkaline Phosphatase 75 U/L (46-116) Troponin I Quantitative < 0.017 ng/mL (0-0.055) < 0.017 ng/mL (0-0.055) < 0.017 ng/mL (0-0.055) Total Protein 7.7 g/dL (6.4-8.2) Albumin 4.0 g/dL (3.4-5.0) Albumin/Globulin Ratio 1.1 (1.0-1.7) Urine Collection Type Unknown Urine Color Straw Urine Clarity Clear Urine pH 5.5 Urine Specific [place] <=1.005 Urine Protein Neg (NEG-TRACE) Urine Glucose (UA) Neg mg/dL (NEG) Urine Ketones (Stick) Neg mg/dL (NEG) Urine Blood Neg (NEG) Urine Nitrite Neg (NEG) Urine Bilirubin Neg (NEG) Urine Urobilinogen Dipstick 0.2 mg/dL (0.2 mg/dL) Urine Leukocyte Esterase Neg (NEG) Urine RBC 0 /HPF (0-2) Urine WBC Occ /HPF (0-4) Urine Squamous Epithelial Cells Occ /LPF Urine Bacteria 0 /HPF (0-FEW) Test 11/01/18 06:25 White Blood Count 5.4 x10^3/uL (4.0-11.0) Red Blood Count 4.66 x10^6/uL (3.50-5.40) Hemoglobin 14.8 g/dL (12.0-15.5) Hematocrit 43.8 % (36.0-47.0) Mean Corpuscular Volume 94 fL (79-100) Mean Corpuscular Hemoglobin 32 pg (25-35) Mean Corpuscular Hemoglobin Concent 34 g/dL (31-37) Red Cell Distribution Width 13.9 % (11.5-14.5) Platelet Count 215 x10^3/uL (140-400) Neutrophils (%) (Auto) 44 % (31-73) Lymphocytes (%) (Auto) 36 % (24-48) Monocytes (%) (Auto) 15 % (0-9) Eosinophils (%) (Auto) 5 % (0-3) Basophils (%) (Auto) 1 % (0-3) Neutrophils # (Auto) 2.4 x10^3uL (1.8-7.7) Lymphocytes # (Auto) 1.9 x10^3/uL (1.0-4.8) Monocytes # (Auto) 0.8 x10^3/uL (0.0-1.1) Eosinophils # (Auto) 0.2 x10^3/uL (0.0-0.7) Basophils # (Auto) 0.0 x10^3/uL (0.0-0.2) Sodium Level 141 mmol/L (136-145) Potassium Level 4.2 mmol/L (3.5-5.1) Chloride Level 106 mmol/L (98-107) Carbon Dioxide Level 27 mmol/L (21-32) Anion Gap 8 (6-14) Blood Urea Nitrogen 18 mg/dL (7-20) Creatinine 1.0 mg/dL (0.6-1.0) Estimated GFR (Cockcroft-Gault) 54.7 BUN/Creatinine Ratio 18 (6-20) Glucose Level 78 mg/dL (70-99) Calcium Level 8.7 mg/dL (8.5-10.1) Total Bilirubin 0.6 mg/dL (0.2-1.0) Aspartate Amino Transf (AST/SGOT) 17 U/L (15-37) Alanine Aminotransferase (ALT/SGPT) 21 U/L (14-59) Alkaline Phosphatase 63 U/L (46-116) Total Protein 6.9 g/dL (6.4-8.2) Albumin 3.6 g/dL (3.4-5.0) Albumin/Globulin Ratio 1.1 (1.0-1.7) Triglycerides Level 130 mg/dL (0-150) Cholesterol Level 167 mg/dL (0-200) LDL Cholesterol, Calculated 89 mg/dL (0-100) VLDL Cholesterol, Calculated 26 mg/dL (0-40) Non-HDL Cholesterol Calculated 115 mg/dL (0-129) HDL Cholesterol 52 mg/dL (40-60) Cholesterol/HDL Ratio 3.0 Assessment/Plan 1. Chest pain with mixed features. Myocardial infarction has been ruled out. Check 2-D echo to assess LV systolic function and rule out wall motion abnormalities. Ischemic workup in the form of stress test could be considered as an outpatient. 2. Hypertension: Well-controlled Thank you for your consultation. MALISSA ELSLIE MD Nov 01, 2018 15:13
[2018-11-01 15:32] VITALS: BP 114/74
--- NOTE | 2018-11-01 15:47 | CARD ---
MR#: [id number] Date of Study: 11/01/2018 Ordering Physician: MALISSA BERNARD, Referring Physician: MALISSA BERNARD Tech: Amelia Case JESSICA APPROVED REPORT EXAM: Two-dimensional and M-mode echocardiogram with Doppler and color Doppler. Other Information Quality : Technically LimitedHR: 66bpm Rhythm : NSRTechnically limited study due to body habitus. INDICATION Chest Pain 2D DIMENSIONS RVDd2.9 (2.9-3.5cm)Left Atrium(2D)3.6 (1.6-4.0cm) IVSd1.3 (0.7-1.1cm)Aortic Root(2D)2.9 (2.0-3.7cm) LVDd3.6 (3.9-5.9cm)PWd0.9 (0.7-1.1cm) LVDs2.6 (2.5-4.0cm)FS (%) 27.9 % SV29.1 mlLVEF(%)55.1 (>50%) Aortic Valve AoV Peak Robinson.119.1cm/sAoV VTI25.8cm AO Peak GR.5.7mmHgAO Mean GR.4mmHg DHARMESH (VTI)2.02cm2 Mitral Valve MV E Jqbdtcph34.4cm/sMV DECEL [id number] MV A Cqdjqlsh59.1cm/sE/A Ratio0.7 MV A Yccxvwhc486ib Tricuspid Valve TR P. Vllxybhm168dr/sRAP NEBRGWDM0lhYf TR Peak Gr.13meQiVMZW80fzRd LEFT VENTRICLE The left ventricle is normal size. Proximal septal thickening is noted. The left ventricular systolic function is normal. The Ejection Fraction is 55-60%. There is normal LV segmental wall motion. Trans mitral Doppler flow pattern is Grade I-abnormal relaxation pattern. RIGHT VENTRICLE The right ventricle is normal size. There is normal right ventricular wall thickness. The right ventr icular systolic function is normal. ATRIA The left atrium size is normal. The right atrium size is normal. The interatrial septum is intact wit h no evidence for an atrial septal defect or patent foramen ovale as noted on 2-D or Doppler imaging. AORTIC VALVE The aortic valve is thickened but opens well. The aortic valve is trileaflet. Doppler and Color Flow revealed no significant aortic regurgitation. There is no significant aortic valvular stenosis. There is no aortic valvular vegetation. MITRAL VALVE The mitral valve is normal in structure and function. There is no evidence of mitral valve prolapse. There is no mitral valve stenosis. Doppler and Color Flow revealed no mitral valve regurgitation note d. TRICUSPID VALVE The tricuspid valve is normal in structure and function. Doppler and Color Flow revealed trace tricus pid regurgitation. The PA pressure was estimated at 27 mmHg. There is no tricuspid valve prolapse or vegetation. There is no tricuspid valve stenosis. PULMONIC VALVE The pulmonic valve is not well visualized. GREAT VESSELS The aortic root is normal in size. The ascending aorta is normal in size. The IVC is normal in size a nd collapses >50% with inspiration. PERICARDIAL EFFUSION There is no evidence of significant pericardial effusion. Critical Notification Critical Value: No <Conclusion> The left ventricular systolic function is normal. The Ejection Fraction is 55-60%. There is normal LV segmental wall motion. Transmitral Doppler flow pattern is Grade I-abnormal relaxation pattern. Doppler and Color Flow revealed trace tricuspid regurgitation. The PA pressure was estimated at 27 mmHg. There is no evidence of significant pericardial effusion. Signed by : Malissa Bernard, Electronically Approved : 11/01/2018 15:47:35
--- NOTE | 2018-11-01 19:24 | DS ---
DATE OF DISCHARGE: 11/01/2018 HOSPITAL COURSE: The patient is a 73-year-old female patient who was admitted with a complaint of chest discomfort described as intermittent chest pain not specifically related to exertion with some radiation to her back and left arm. She describes nausea and diaphoresis related to pain at times. It was difficult to know whether this diaphoresis starts first and then chest pain comes or vice versa. She also complained of shortness of breath, but denied any orthopnea or paroxysmal nocturnal dyspnea. She was evaluated in the Emergency Room, has had an EKG, which was in sinus rhythm with no evidence of acute ST-T changes. Her chest x-ray showed no radiographic evidence of acute pulmonary disease and first set of cardiac enzyme was less than 0.017. The patient was admitted and has had 2 more sets of cardiac enzymes that ruled out myocardial infarction. She was seen in consultation by the director food and beverage ordered an echocardiogram, which showed that her left ventricular systolic function is normal, ejection fraction was 55-60%. There is normal left ventricular segmental wall motion. Transmitral Doppler flow pattern is grade 1 abnormal relaxation pattern. Doppler flow revealed trace tricuspid regurgitation. Her pulmonary artery pressure was estimated at 27 mmHg and there is no evidence of significant pericardial effusion. The patient was discharged home to continue on her medication with plan for outpatient ischemic workup in the form of nuclear stress test. PHYSICAL EXAMINATION: GENERAL: When I saw her this afternoon, she looked well and was clearly in no apparent respiratory distress. No pallor, jaundice, cyanosis or thyromegaly. No jugular venous distention. No limb edema. VITAL SIGNS: Her heart rate was 61, blood pressure 114/74, temperature was 97.7, respiratory rate was 20, and oxygen saturation was 96%. HEAD, EYES, EARS, NOSE AND THROAT: Showed normocephalic, atraumatic. NECK: Supple. HEART: Showed normal first and second heart sounds with no gallop, rub or murmur. CHEST: Clear to auscultation. No crepitation or rhonchi. ABDOMEN: Distended, soft, nontender. NEUROLOGIC: She is awake, alert, responding appropriately. All cranial nerves intact. EXTREMITIES: She moves extremities without difficulty. She ambulates without assistance or assistive devices. LABORATORY DATA: This morning showed a serum sodium 141, potassium 4.2, chloride 106, bicarbonate 27, anion gap of 8, BUN 18, creatinine 1, estimated GFR was 55 mL per minute. Her glucose was 78, calcium was 8.7. Total bilirubin, AST, ALT, alkaline phosphatase were normal. Total protein was 6.9, albumin 3.6. She has 3 sets of cardiac enzyme, all of them showed troponin to be less than 0.017. Her serum triglycerides 130, total cholesterol 167, LDL cholesterol was 89, VLDL was 26, and HDL cholesterol 52 and ratio was 3. Her white cell count was 5400, hemoglobin 15, hematocrit 44, MCV 94 and platelet count 215,000. DISCHARGE MEDICATIONS: She was discharged home to continue on amlodipine/olmesartan for Allyson 5/40 one tablet once a day, conjugated estrogen 30 grams topically 3 times per week, Protonix 40 mg once a day and polyethylene glyco for MiraLax 17 grams daily. FINAL DISCHARGE DIAGNOSES: 1. Chest pain with mixed features. 2. Myocardial infarction has been ruled out. Her echocardiogram showed normal left ventricular systolic function, hypertension. The patient will have ischemic workup as an outpatient to perform stress test. MEI GALDAMEZ MD DR: YESIKA/pop JOB#: [id number] / [id number]
== END 2018-11-01 18:29 | disposition home or self-care (01) | DRG 392 ==
LOC: ER 12:48 → 1 SOUTH 16:06
PROVIDERS: ADMIT Internal Medicine; ATTEND Internal Medicine
DX: K21.9 Gastro-esophageal reflux disease without esophagitis (principal); I10 Essential (primary) hypertension; Z90.710 Acquired absence of both cervix and uterus; E78.5 Hyperlipidemia, unspecified; Z88.5 Allergy status to narcotic agent; Z88.0 Allergy status to penicillin; Z88.2 Allergy status to sulfonamides; Z88.8 Allergy status to other drugs, medicaments and biological substances; Z98.42 Cataract extraction status, left eye; Z98.41 Cataract extraction status, right eye; Z90.721 Acquired absence of ovaries, unilateral; Z87.891 Personal history of nicotine dependence; Z83.3 Family history of diabetes mellitus; Z82.49 Family history of ischemic heart disease and other diseases of the circulatory system; Z80.1 Family history of malignant neoplasm of trachea, bronchus and lung; Z82.0 Family history of epilepsy and other diseases of the nervous system
CPT/HCPCS: 36415; 71045; 80053; 80061; 81001; 84484; 85025; 85379; 93005; 93306; 96360; 99285-25; J7030

== ENCOUNTER → 2019-04-30 | Outpatient (CLI) | payer MEDICARE, BC ==
[~2019-04-30] MED LIST changes: +CONTRAST GIVEN MC PRN; +ESTR30CR TP; +IOHEXOL 240 MG/ML 50ML VIAL. PO ONE; +IOHEXOL 300 MG/ML 75 ML VIAL. IV ONE
[2019-04-30 15:39] LABS: BASO # 0.1 x10^3/uL (0.0-0.2); BASO % 1 % (0-3); EOS # 0.1 x10^3/uL (0.0-0.7); EOS % 1 % (0-3); HEMATOCRIT 47.3 % (36.0-47.0); HEMOGLOBIN 15.9 g/dL (12.0-15.5); LYMPH # 2.6 x10^3/uL (1.0-4.8); LYMPH % 32 % (24-48); MEAN CORPUSCULAR HEMOGLOBIN 31 pg (25-35); MEAN CORPUSCULAR HGB CONC 34 g/dL (31-37); MEAN CORPUSCULAR VOLUME 92 fL (79-100); MONO # 0.9 x10^3/uL (0.0-1.1); MONO % 11 % (0-9); NEUT # 4.3 x10^3uL (1.8-7.7); NEUT % 54 % (31-73); PLATELET COUNT 253 x10^3/uL (140-400); RED BLOOD COUNT 5.15 x10^6/uL (3.50-5.40); RED CELL DISTRIBUTION WIDTH 13.7 % (11.5-14.5)
[2019-04-30 15:50] LABS: ALBUMIN 4.5 g/dL (3.4-5.0); ALBUMIN/GLOBULIN RATIO 1.3 (1.0-1.7); C REACTIVE PROTEIN 3.2 mg/L (0-3.3); CALCIUM 9.7 mg/dL (8.5-10.1); GFR 54.5; POTASSIUM 4.2 mmol/L (3.5-5.1); TOTAL BILIRUBIN 0.4 mg/dL (0.2-1.0); TOTAL PROTEIN 8.1 g/dL (6.4-8.2)
[2019-04-30 16:14] LABS: COLOR,URINE YELLOW
[2019-04-30 16:15] LABS: BACTERIA,URINE 0 /HPF (0-FEW); BILIRUBIN,URINE NEG (NEG); CLARITY,URINE CLEAR; GLUCOSE,URINE NEG (NEG); NITRITE,URINE NEG (NEG); RBC,URINE 0 /HPF (0-2); SQUAMOUS EPITHELIAL CELL,UR FEW /LPF; UROBILINOGEN,URINE 0.2 mg/dL (0.2 mg/dL)
--- NOTE | 2019-04-30 16:37 | RAD ---
CT scan of the abdomen and pelvis with contrast 04/30/2019 CLINICAL HISTORY: Abdominal pain. Loose stools. TECHNIQUE: After the oral and intravenous administration of contrast, contiguous, 5 mm axial sections were obtained through the abdomen and pelvis. One or more of the following individualized dose reduction techniques were utilized for this study: 1. Automated exposure control. 2. Adjustment of the mA and/or kV according to patient size. 3. Use of iterative reconstruction technique. FINDINGS: Comparison study is dated 07/21/2013. Images through the lung bases demonstrate minimal dependent subsegmental atelectasis bilaterally. There is a small to moderate-sized sliding hiatal hernia. The liver, spleen, pancreas, adrenal glands and kidneys are within normal limits. Atherosclerotic calcification of the abdominal aorta is seen. The abdominal aorta tapers normally. Surgical clips are seen within the gallbladder fossa consistent with a cholecystectomy. Air and stool are seen throughout the colon. There is no evidence of bowel obstruction. The patient is post ventral hernia repair. Images through the pelvis demonstrate the urinary bladder distended with urine. Scattered diverticula are seen involving the sigmoid colon. Moderate to large sized rectocele and cystocele are seen again seen. Very mild S-shaped curvature of the thoracolumbar spine is noted. Degenerative changes are seen involving lower thoracic and throughout the lumbar spine along with both hips. IMPRESSION: No acute abnormality is seen. Electronically signed by: Norberto Becerra MD (04/30/2019 4:34 PM) [facility] [place]
== END | disposition home or self-care (01) ==
LOC: PMG 14:17
PROVIDERS: ATTEND Registered Nurse
DX: K44.9 Diaphragmatic hernia without obstruction or gangrene (principal); K57.30 Diverticulosis of large intestine without perforation or abscess without bleeding; M43.8X5 Other specified deforming dorsopathies, thoracolumbar region; M47.815 Spondylosis without myelopathy or radiculopathy, thoracolumbar region; J98.11 Atelectasis; I70.0 Atherosclerosis of aorta; N81.6 Rectocele; N81.10 Cystocele, unspecified; Z87.19 Personal history of other diseases of the digestive system
CPT/HCPCS: 36415; 74177; 80053; 81001; 82150; 83690; 85025; 86140; Q9966; Q9967

== ENCOUNTER → 2019-05-09 | Outpatient (CLI) | payer MEDICARE, BC ==
[~2019-05-09] MED LIST changes: -CONTRAST GIVEN MC PRN; -IOHEXOL 240 MG/ML 50ML VIAL. PO ONE; -IOHEXOL 300 MG/ML 75 ML VIAL. IV ONE
--- NOTE | 2019-05-09 09:57 | RAD ---
Examination: Small Bowel Series History: Abdominal pain, loose stools Comparison: None available The preliminary film is unremarkable. Cholecystectomy clips identified. Following administration of oral barium, images were performed at timed intervals. The transit time it is approximately 20 minutes. The duodenal loop appears normal. The small bowel mucosal pattern is normal. There is no stricture or dilatation. The terminal ileum appears normal. Impression: Unremarkable exam. Electronically signed by: Chas Elias MD (05/09/2019 9:54 AM) [id number]
== END | disposition home or self-care (01) ==
LOC: RAD 07:52
PROVIDERS: ATTEND Internal Medicine Gastroenterology
DX: R10.9 Unspecified abdominal pain (principal); Z90.49 Acquired absence of other specified parts of digestive tract
CPT/HCPCS: 74250

== ENCOUNTER → 2019-07-18 | Outpatient (CLI) | payer MEDICARE, BC ==
[~2019-07-18] MED LIST changes: +IOHEXOL 350 MG/ML 100 ML VIAL. IV ONE
[2019-07-18 09:00] LABS: GFR 54.5
--- NOTE | 2019-07-18 10:57 | RAD ---
CT ANGIOGRAPHY ABD AND PELVIS Indication: Continued pain, diarrhea Technique: Postcontrast CT imaging was performed of the abdomen pelvis, multiplanar reconstruction to include 3-D and MIP reconstruction images submitted. No oral contrast was given. One or more of the following individualized dose reduction techniques were utilized for this examination: 1. Automated exposure control 2. Adjustment of the mA and/or kV according to patient size 3. Use of iterative reconstruction technique. Comparison: April 30, 2019 Findings: Abdominal aortic caliber is within normal limits, no dissection flap. There is mild calcified plaque of the distal infrarenal abdominal aorta, no significant stenosis. Celiac, superior mesenteric, inferior mesenteric arteries are patent. There is minimal plaque near the celiac artery origin. There are 2 left renal arteries, small caliber of the more superior vessel. There is patent single right renal artery. Iliac arteries are patent bilaterally without significant focal stenosis. No dissection flap is identified of the abdominal aorta. There is minimal atelectasis near lung bases, no pleural fluid. Heterogeneity of the spleen is probably due to differential in perfusion during exam. There is no adrenal nodularity. There again has been cholecystectomy. Extrahepatic common bile duct is somewhat prominent as seen previously about 1 cm although sometimes can be normally seen after cholecystectomy. No new focal abnormality is identified of the pancreas or liver. Bowel is not significantly dilated. There is no free fluid or free air. There is sigmoid diverticulosis. There is some osteoarthritic change of the hips greater on the right. There is again lytic lesion of the L2 vertebral body although similar to 2014 exam, most likely a hemangioma. There is small sliding hiatal hernia, nonspecific relative wall thickening of involved segment. IMPRESSION: 1. No significant focal stenosis is identified. There is no evidence of abdominal aortic aneurysm or dissection flap. 2. There is sigmoid diverticulosis without evidence of diverticulitis. 3. There is similar extrahepatic biliary ductal dilatation although sometimes can be normally seen after cholecystectomy. 4. There is a small hiatal hernia, nonspecific wall thickening of involved segment. Electronically signed by: Trino Bowden MD (07/18/2019 10:55 AM) [id number]
== END | disposition home or self-care (01) ==
LOC: CT 08:19
PROVIDERS: ATTEND Internal Medicine Gastroenterology
DX: K44.9 Diaphragmatic hernia without obstruction or gangrene (principal); K57.30 Diverticulosis of large intestine without perforation or abscess without bleeding; I70.0 Atherosclerosis of aorta; I70.8 Atherosclerosis of other arteries; M16.0 Bilateral primary osteoarthritis of hip
CPT/HCPCS: 36415; 74174; 82565; 84520; Q9967

== ENCOUNTER → 2020-05-21 | Outpatient (CLI) | payer MEDICARE, BC ==
[~2020-05-21] MED LIST changes: -CYAN250T PO; +CYAN250T3 PO; -IOHEXOL 350 MG/ML 100 ML VIAL. IV ONE
--- NOTE | 2020-05-21 13:16 | RAD ---
XR KNEE _3 VIEWS_LT History: Reason: / Spl. Instructions: / History: Pain Technique: 3 views left knee Comparison: None. Findings: Normal alignment. No fracture. Mild left knee degenerative changes most prominent within the medial a nd patellofemoral compartment. No significant knee joint effusion. Impression: 1. No acute osseous abnormality. 2. Mild left knee DJD. Electronically signed by: Shane Menendez DO (05/21/2020 1:13 PM) [id number]
== END ==
LOC: RAD 12:42
PROVIDERS: ATTEND Nurse Practitioner Family
DX: M17.12 Unilateral primary osteoarthritis, left knee (principal)
CPT/HCPCS: 73562

== ENCOUNTER → 2020-05-26 | Outpatient (CLI) | payer MEDICARE, BC ==
--- NOTE | 2020-05-26 16:20 | RAD ---
Left Lower Extremity Venous Doppler Ultrasound History: Reason: LOWER EXTREMITY SWELLING / Spl. Instructions: / History: Comparison: None Procedure: Color flow, duplex, spectral analysis and 2D images are obtained with and without compress ion in the area of the common femoral vein, superficial femoral vein - femoral vein junction, main fe moral vein (superficial femoral vein) and popliteal vein. Veins of the proximal calf are also imaged. Findings: There is normal duplex flow, color flow and compressibility of all visualized vein segments. No evide nce of deep venous thrombus is present. Impression: No evidence of DVT. Electronically signed by: Rishabh Nickerson III, MD (05/26/2020 4:17 PM) [facility]
== END ==
LOC: RAD 15:37
PROVIDERS: ATTEND Physician Assistant Medical
DX: M25.562 Pain in left knee (principal); M79.89 Other specified soft tissue disorders
CPT/HCPCS: 93971